=== PATIENT | male | born 1950 | race Caucasian/White ===

== ENCOUNTER 2017-01-21 21:06 | Emergency (ER) | payer BC ==
[~2017-01-21] VITALS: Ht 175.3 cm; Wt 111.3 kg
[~2017-01-21 21:06] MED LIST: AMBIEN10 M1 PO; AMBIEN10 MG PO; AMOX TR-K CLV1 EAC4 PO; ASPIR-LOW81 M1 PO; ASPIR-LOW81 MG PO; ATIVAN1 MG PO; BENICAR20 MG PO; CIPRODEX OTIC7.5 ML BOTH EARS; COUMADIN1 MG; CRESTOR5 MG PO; CYCLOBENZAPRINE10 M1 PO; CYCLOBENZAPRINE10 MG PO; Coumadin dosing per PO; DEXILANT60 MG PO; DIAZEPAM5 MG PO; FENOFIBRATE160 M1 PO; FISH OIL 1,0001 EAC7 PO; FISH OIL CONC1 EACH PO; FLAX SEED OIL1 EACH PO; FLAX SEED OIL1000 MG PO; FLONASE16 G1 BOTH NARES; HYDROCHLOROTH12.5 M3 PO; HYDROCODON-ACE1 EAC7 PO; HYDROCODON-ACE1 EAC8 PO; IRBESARTAN150 MG PO; KEPPRA1000 MG PO; LEVAQUIN750 MG PO; LEVETIRACETAM250 MG PO; LO-DOSE ASPIRIN81 M1 PO; LORATADINE10 M2 PO; LORAZEPAM1 MG PO; METOPROLOL SUCC25 MG PO; MIRAPEX0.25 MG PO; NEXIUM40 MG PO; OXYCODONE HCL10 MG PO; OXYCODONE-APAP1 EACH PO; PERCOCET 5-3251 EACH PO; PERCOCET 7.51 TABLET PO; RELAFEN750 MG PO; SKELAXIN400 M1 PO; SUCRALFATE1 GM PO; TRILIPIX135 MG PO; ULTRACET1 TABLET PO; VENLAFAXINE HCL75 M2 PO; VENLAFAXINE HCL75 M3 PO; VICODIN ES 7.51 EACH PO; VIMPAT200 MG PO; Vicodin,Lortab 5/500 PO; WYGESIC,DARV1 TABLET PO; XARELTO15 MG PO; XARELTO20 MG PO; ZESTRIL2.5 MG PO; ZOLPIDEM TARTRA10 MG PO
[2017-01-22] MEDS ORDERED: KEFLEX500 MG PO (00:12)
== END 2017-01-22 00:39 | disposition home or self-care (01) ==
LOC: RME 21:06 → EME 21:06 → RME 01-22 00:39
DX: S61.411A Laceration without foreign body of right hand, initial encounter (principal); Z23 Encounter for immunization; Z79.01 Long term (current) use of anticoagulants; W26.9XXA Contact with unspecified sharp object(s), initial encounter; R56.9 Unspecified convulsions; Z86.73 Personal history of transient ischemic attack (TIA), and cerebral infarction without residual deficits; Z86.711 Personal history of pulmonary embolism; Z88.6 Allergy status to analgesic agent
CPT/HCPCS: 73130; 99281; 99284